=== PATIENT | male | born 1995 | race Two or more races ===

== ENCOUNTER 2018-06-21 17:39 | Emergency (ER) | payer MEDICAID ==
[~2018-06-21] VITALS: Ht 175.3 cm; Wt 79.4 kg
[2018-06-21 18:51] LABS: Alcohol, Urine < 3.0 mg/dL (0-5); Amphetamine Screen, Urine NEGATIVE (NEGATIVE); Barbiturate Scree,Urine NEGATIVE (NEGATIVE); Benzodiazephine Screen, Urine NEGATIVE (NEGATIVE); Cannabinoid Screen, Urine NEGATIVE (NEGATIVE); Cocaine Screen, Urine NEGATIVE (NEGATIVE); Opiate Scree,Urine NEGATIVE (NEGATIVE); Phencyclidine Screen, Urine NEGATIVE (NEGATIVE)
[2018-06-21 18:56] LABS: Urine Bacteria NONE SEEN /hpf (None Seen); Urine Blood Negative /uL (Negative); Urine Mucus FEW (None Seen); Urine Specific Gravity 1.029 (1.001-1.035); Urine WBC 1 /hpf (0 - 3)
[2018-06-21 20:21] LABS: Basophils # (auto) 0 uL; Basophils % (auto) 0.2 % (0.0-2.0); Eosinophils # (auto) 0.1 uL; Hematocrit 48.2 % (41.0-53.0); Hemoglobin 16.7 g/dL (13.5-17.5); Lymphocytes % (auto) 23.8 % (10.0-50.0); Mean Corpuscular Hemoglobin 31.8 pg (28.0-32.0); Mean Corpuscular Hgb Conc. 34.5 g/dL (32.0-36.0); Mean Corpuscular Volume 92.1 fL (80.0-100.0); Monocytes # (auto) 0.7 uL; Monocytes % (auto) 9.1 % (0.0-12.0); Neutrophils # (auto) 5.4 uL; Neutrophils % (auto) 65.9 % (37.0-80.0); Platelet Count (auto) 217 10^3/uL (140-450); Red Blood Cells 5.23 10^6/uL (4.5-5.90); Red Cell Distribution Width 12.9 % (11.8-14.3); White Blood Cell 8.2 10^3/uL (4.4-10.8)
[2018-06-21 20:41] LABS: Alanine Aminotransferase 28 U/L (16-61); Albumin 4.5 g/dL (3.4-5.0); Anion Gap 7 (5-15); Aspartate Aminotransferase 16 U/L (15-37); BUN/Creatinine Ratio 15.1; Blood Urea Nitrogen 14 mg/dL (7-18); Calcium 8.6 mg/dL (8.5-10.1); Carbon Dioxide 25 mmol/L (21-32); Chloride 108 mmol/L (98-107); GFR African American 132 mL/min; GFR Non-African American 109 mL/min; Glucose 113 mg/dL (74-106); Magnesium 2.4 mg/dL (1.6-2.6); Potassium 3.6 mmol/L (3.5-5.1); Sodium 140 mmol/L (136-145)
[2018-06-21 20:46] LABS: Alkaline Phosphatase 84 U/L (45-117); Bilirubin, Total 0.8 mg/dL (0.2-1.0); Total Protein 7.4 g/dL (6.4-8.2)
[2018-06-22 06:34] VITALS: BP 143/89
== END 2018-06-22 06:49 | disposition home or self-care (01) ==
LOC: ER 18:00
DX: R07.9 Chest pain, unspecified (principal); R06.02 Shortness of breath
CPT/HCPCS: 36415; 71046; 80053; 80307; 81001; 83735; 84484; 85025; 85379; 93005

== ENCOUNTER 2019-05-29 20:51 | Inpatient (IN) | payer MEDICAID ==
[~2019-05-29] VITALS: Ht 177.8 cm; Wt 74.8 kg
[2019-05-29 22:01] LABS: Basophils # (auto) 0 uL; Basophils % (auto) 0.4 % (0.0-2.0); Eosinophils # (auto) 0 uL; Eosinophils % (auto) 0.5 % (0.0-7.0); Hematocrit 46.6 % (41.0-53.0); Hemoglobin 16.2 g/dL (13.5-17.5); Lymphocytes # (auto) 1.8 uL; Lymphocytes % (auto) 18.2 % (10.0-50.0); Mean Corpuscular Hgb Conc. 34.7 g/dL (32.0-36.0); Mean Corpuscular Volume 92.2 fL (80.0-100.0); Monocytes # (auto) 0.5 uL; Monocytes % (auto) 4.6 % (0.0-12.0); Neutrophils # (auto) 7.5 uL; Neutrophils % (auto) 76.3 % (37.0-80.0); Nucleated Red Blood Cells % 0.1 %; Platelet Count (auto) 232 10^3/uL (140-450); Red Blood Cells 5.05 10^6/uL (4.5-5.90); Red Cell Distribution Width 13.4 % (11.8-14.3); White Blood Cell 9.9 10^3/uL (4.4-10.8)
[2019-05-29 22:20] LABS: Alanine Aminotransferase 22 U/L (16-61); Albumin 4.6 g/dL (3.4-5.0); Anion Gap 8 (5-15); Aspartate Aminotransferase 13 U/L (15-37); Blood Urea Nitrogen 14 mg/dL (7-18); Calcium 8.6 mg/dL (8.5-10.1); Carbon Dioxide 25 mmol/L (21-32); Chloride 107 mmol/L (98-107); Glucose 79 mg/dL (74-106); Potassium 3.6 mmol/L (3.5-5.1); Sodium 140 mmol/L (136-145)
[2019-05-29 22:20] LABS: Urine Bacteria NONE SEEN /hpf (None Seen); Urine Blood Negative /uL (Negative); Urine Mucus FEW (None Seen); Urine WBC 1 /hpf (0 - 3)
[2019-05-29 22:24] LABS: Alkaline Phosphatase 83 U/L (45-117); BUN/Creatinine Ratio 12.8; GFR African American 110 mL/min; GFR Non-African American 91 mL/min; Total Protein 7.8 g/dL (6.4-8.2)
[2019-05-29 22:25] LABS: Alcohol, Urine < 3.0 mg/dL (0-5); Amphetamine Screen, Urine NEGATIVE (NEGATIVE); Barbiturate Scree,Urine NEGATIVE (NEGATIVE); Benzodiazephine Screen, Urine NEGATIVE (NEGATIVE); Cannabinoid Screen, Urine NEGATIVE (NEGATIVE); Cocaine Screen, Urine NEGATIVE (NEGATIVE); Opiate Scree,Urine NEGATIVE (NEGATIVE); Phencyclidine Screen, Urine NEGATIVE (NEGATIVE)
[2019-05-30] VITALS (7 sets, daily range): BP systolic 116–137; BP diastolic 61–83
[2019-05-30] MEDS ORDERED: ONDANSETRON ODT 4 MG TAB PO ONE (00:15)
[2019-05-30] MEDS ORDERED: ASPirin-EC 325mg tab PO ONE (00:15)
[2019-05-30] MEDS ORDERED: MORPHINE SULFATE 4 MG/ML SYR/VIAL IV ONE (00:15)
[2019-05-30] MEDS ORDERED: NITROGLYCERIN 0.4 MG SL TAB SL PRN ×2 (00:45)
[2019-05-30] MEDS ORDERED: MORPHINE SULFATE 4 MG/ML SYR/VIAL IV PRN (00:45)
[2019-05-30] MEDS ORDERED: ZOLPIDEM TARTRATE 5 MG TAB PO PRN (00:45)
[2019-05-30] MEDS ORDERED: ACETAMINOPHEN 325 MG TAB PO PRN (00:45)
[2019-05-30] MEDS ORDERED: ONDANSETRON HCL 4 MG/2 ML VIAL IV PRN (00:45)
[2019-05-30] MEDS ORDERED: MORPHINE SULF INJ 2 MG/ML SYRINGE 1ML IV PRN (00:45)
[2019-05-30] MEDS ORDERED: KETOROLAC TROMETH 15 mg/ml 1ML VL IV PRN (00:45)
--- NOTE | 2019-05-30 01:45 | NUR ---
Telemetry admit from ER B[facility] HESTER admitted to Telemetry unit, oriented to EMMA MOORE RN primary RN, unit, room, bed, and unit policies regarding patient care and visiting hours. Mother, Cynthia, at bedside. Patient now on continuous telemetry monitoring, tele box # 1 and telemetry reading on arrival to unit is sinus rhythm at 70 beats per minute with bundle branch block and ST elevation. Patient reporting continuous 6/10 "tight" chest pain, radiating to left arm with nausea. Patient noted to have been medicated prior to arrival to unit (see emar) and MD's noted to be aware (see notes). All vital signs WNL. Patient weighed by bedscale and encouraged to call if they need something. All questions and concerns addressed, patient verbalized understanding. Bed in lowest locked position, side rails up x2, call light within reach. Will round every hour and as needed and continue to monitor.
[2019-05-30 06:37] LABS: Basophils # (auto) 0 uL; Basophils % (auto) 0.4 % (0.0-2.0); Eosinophils # (auto) 0.1 uL; Eosinophils % (auto) 0.9 % (0.0-7.0); Hematocrit 42.6 % (41.0-53.0); Hemoglobin 14.9 g/dL (13.5-17.5); Lymphocytes # (auto) 3.1 uL; Mean Corpuscular Hemoglobin 32.3 pg (28.0-32.0); Mean Corpuscular Volume 92.1 fL (80.0-100.0); Monocytes # (auto) 0.5 uL; Monocytes % (auto) 7.7 % (0.0-12.0); Neutrophils # (auto) 3.2 uL; Nucleated Red Blood Cells % 0.1 %; Platelet Count (auto) 186 10^3/uL (140-450); Red Blood Cells 4.62 10^6/uL (4.5-5.90); Red Cell Distribution Width 13.4 % (11.8-14.3); White Blood Cell 6.9 10^3/uL (4.4-10.8)
--- NOTE | 2019-05-30 06:47 | NUR ---
Closing Note Patient lying in bed, awake and alert. No s/s of distress. Bed in lowest locked position, side rails up x2, call light within reach. Will endorse care to dayshift RN.
[2019-05-30 06:59] LABS: Potassium 3.5 mmol/L (3.5-5.1)
[2019-05-30 07:05] LABS: BUN/Creatinine Ratio 12.2; Calcium 8.7 mg/dL (8.5-10.1)
--- NOTE | 2019-05-30 08:00 | NUR ---
Opening Note Assumed patient care from NOC RN. Patient currently sleeping. Respirations are even and unlabored, no signs of distress at this time. Safety precautions in place: bed is locked and in lowest position with side rails up x2. Will continue to monitor.
[2019-05-30] MEDS ORDERED: LISINOPRIL 5 MG TAB PO SCH (10:00)
[2019-05-30] MEDS ORDERED: ASPirin 81 mg TAB PO SCH (10:00)
[2019-05-30] MEDS ORDERED: CLOPIDOGREL BISULFATE 75 MG TAB PO SCH (10:00)
--- NOTE | 2019-05-30 10:30 | NUR ---
Family at bedside Patient up in bed, AOx4. Denies pain at this time. Respirations are even and unlabored. IV flushes easily with blood return noted, denies pain at site. Safety precautions in place and family is at bedside; will continue to monitor.
[2019-05-30] MEDS: METOPROLOL TARTRATE 25 MG TAB PO SCH ×2 (10:45→21:45)
--- NOTE | 2019-05-30 11:22 | NUR ---
New Orders New orders received from Dr. Dockery to page Dr. Ventura Avalos to clear for discharge on 05/31.
--- NOTE | 2019-05-30 12:02 | NUR ---
MD Per Dr. Gibson, echo results cleared. Orders to page Dr. Sis Avalos for discharge clearance in AM.
--- NOTE | 2019-05-30 13:25 | NUR ---
Call to Dr. Ventura Avalos Called Dr. Ventura Avalos regarding clearing patient for discharge in AM per Dr. Dockery request. MD aware of echo results, patient has been cleared for discharge by cardio.
--- NOTE | 2019-05-30 15:52 | NUR ---
Patient Rounds Patient sitting up in bed with family at bedside. Patient stated he is having trouble passing bowel movement; offered prune juice with dinner, patient agreed. Dietary called, juice to be delivered with dinner tray. Respirations are even and unlabored, no signs of distress at this time. Safety precautions in place. Will continue to monitor.
--- NOTE | 2019-05-30 19:30 | NUR ---
Opening Shift Note Assumed care of patient, awake and alert. Family at bedside. No S/S of distress/SOB or pain. Bed in lowest locked position, side rails up x2, call light within reach. Instructed on POC and to call for assist PRN, will continue to monitor for changes Q1hr and PRN.
[2019-05-30] MEDS ORDERED: ATORVASTATIN 20 MG TAB PO SCH (22:00)
[2019-05-31 05:00] VITALS: BP 111/78
--- NOTE | 2019-05-31 06:55 | NUR ---
Closing Note Patient lying in bed, eyes closed, respirations even and unlabored, appears asleep. No s/s of distress. Bed in lowest locked position, side rails up x2, call light within reach. Will endorse care to dayshift RN.
--- NOTE | 2019-05-31 08:00 | NUR ---
Opening Note Patient is sitting up in bed. Respirations even and unlabored on room air. Safety precautions in place, brakes locked and bed in lowest position. Will continue to monitor.
[2019-05-31 09:00] VITALS: BP 127/70
[2019-05-31 10:01] VITALS: BP 115/58
--- NOTE | 2019-05-31 10:23 | NUR ---
Patient Discharged Discharge instructions given as ordered. Encourage to follow up with PMD as instructed. All questions and concerns addressed. Patient verbalized understanding. Medication reconciliation form completed and copy given to patient. IV removed with catheter intact, pressure dressing applied. Telemetry unit returned to ICU. Patient ambulated to vehicle, accompanied family members. No distress noted at time of departure.
== END 2019-05-31 10:23 | disposition home or self-care (01) | DRG 203 ==
LOC: ER 20:51 → TELE 20:52 → TELE-EAST 05-30 01:45
PROVIDERS: ADMIT Hospitalist; ATTEND Internal Medicine
DX: M94.0 Chondrocostal junction syndrome [Tietze] (principal); R00.2 Palpitations; Z80.8 Family history of malignant neoplasm of other organs or systems; Z80.3 Family history of malignant neoplasm of breast
CPT/HCPCS: 36415; 71046; 80048; 80053; 80061; 80307; 81001; 84443; 84484; 85025; 93005; 93306; 96374; 96375; G0378; J2405

== ENCOUNTER 2024-06-19 18:15 | Emergency (ER) | payer MEDICAID ==
[~2024-06-19] VITALS: Ht 180.3 cm; Wt 75.0 kg
[2024-06-19 19:52] LABS: Basophils # (auto) 0 10 ^3/uL (0-0.2); Basophils % (auto) 0.2 % (0.0-2.0); Eosinophils # (auto) 0 10 ^3/uL (0-0.8); Hematocrit 47.9 % (41.0-53.0); Hemoglobin 16.5 g/dL (13.5-17.5); Lymphocytes # (auto) 0.3 10 ^3/uL (0.4-5.4); Mean Corpuscular Hemoglobin 31.5 pg (28.0-32.0); Mean Corpuscular Hgb Conc. 34.4 g/dL (32.0-36.0); Mean Corpuscular Volume 91.6 fL (80.0-100.0); Monocytes # (auto) 0.6 10 ^3/uL (0-1.3); Monocytes % (auto) 5.5 % (0.0-12.0); Neutrophils # (auto) 10.1 10 ^3/uL (1.6-8.6); Neutrophils % (auto) 91.3 % (37.0-80.0); Nucleated Red Blood Cells % 0.2 %; Platelet Count (auto) 188 10^3/uL (140-450); Red Blood Cells 5.23 10^6/uL (4.5-5.90); Red Cell Distribution Width 13.2 % (11.8-14.3)
--- NOTE | 2024-06-19 19:52 | ED.PDOC ---
GI ASSESSMENT HPI Comments 29 year old male came to Er due to nausea and vomiting. Patient has been having episodes of nausea, vomiting and diarrhea since this morning, associated with headaches, lower back pains and abdominal pain. Patient had his wisdom tooth extracted 5 days ago and is currently on antibiotics. Chief Complaint: Nausea/Vomiting Time Seen by MD: 19:51 Primary Care Provider: [facility] Reviewed Notes: Nurses Notes Allergies: Coded Allergies: NO KNOWN ALLERGIES (Unverified , 11/24/10) Home Meds Active Scripts Ondansetron Odt 4MG Tab (ZOFRAN PO) 4 Mg Tb, 4 MG PO TIDPRN PRN for 3 Days, #9 TAB ODT TAB-DISSOLVE IN MOUTH, THEN SWALLOW Prov:ENRIQUE SCHMIDT MD 06/19/24 Information Source: Patient Mode of Arrival: Ambulatory Timing: Hours Duration: Since onset Quality: Aching Vomitus: Watery Stool: Loose, Watery Severity: Moderate Recent: Possible spoiled food, Antibiotics Recent Hx of: None Pain Location: Epigastric Modifying Factors: Nothing Associated sign and symptoms: Nausea, Vomiting, Diarrhea, Abdominal Pain Review of Systems REVIEW OF SYSTEMS: No fever, no chills, or fatigue HEENT: No sore throat, no earache, no congestion, no neck pain. Cardiac: No chest pain. No palpitations. Lungs: No shortness of breath, no cough. GI: (+) nausea, (+) vomiting, (+) diarrhea, no constipation, (+) abdominal pain : No dysuria, frequency, or urgency. No hematuria. Musculoskeletal: No joint pain , no joint swelling, no extremity edema. Skin: No rash, no itching. Neuro: No headache, no dizziness, no weakness Vital Signs Vital Signs Date Time Temp Pulse Resp B/P (MAP) Pulse Ox O2 Delivery O2 Flow Rate FiO2 06/19/24 20:06 98.9 107 18 114/63 (80) 97 98.9 Physical Exam General: Awake, alert and oriented. No acute distress. Skin: Skin in warm, dry and intact. Appropriate color for ethnicity. Nailbeds pink with no cyanosis. HEENT: The head is normocephalic and atraumatic. Conjunctivae are clear without exudates or hemorrhage. Sclera is non-icteric. EOM are intact. No signs of nys tagmus. Eyelids are normal in appearance without swelling or lesions. Oral mucosa is pink and moist Neck: The neck is supple with normal range of motion. No JVD. Cardiac: Heart rate and rhythm are normal. No murmurs, gallops, or rubs are auscultated. Respiratory: No signs of respiratory distress. Lung sounds are clear in all lobes bilaterally without rales, ronchi, or wheezes. Abdominal: Abdomen is soft, right lower quadrant tenderness without distention. Bowel sounds are present and normoactive in all four quadrants. Extremities: Upper and lower extremities are atraumatic in appearance without deformity or edema. Neurological: The patient is awake, alert and oriented to person, place, and time with normal speech. Speech is clear. There is no facial asymmetry. Psychiatric: Appropriate mood and affect. Good judgement and insight. No visual or auditory hallucinations. Past Medical History PAST MEDICAL HISTORY: Denies Surgical History: Denies all surgeries Family History Family History: No family hx of Heart aramis Social History Smoker: Non-Smoker Alcohol: Denies ETOH Use Drugs: Denies Drug Use Lives In: Home Was a procedure done? Was a procedure done?: No GI differential Dx Differential Diagnosis: AAA, Appendicitis, Bowel Obstruction, Cholangitis, Ch olecystitis, Diverticular disease, Gastritis/PUD, Gastroenteritis, Ischemic Bowel, Pancreatitis, UTI, Urolithiasis, Dehydration, Food Poisoning, Other X-Ray, Labs, Meds, VS Vital Signs Date Time Temp Pulse Resp B/P (MAP) Pulse Ox O2 Delivery O2 Flow Rate FiO2 06/19/24 20:06 98.9 107 18 114/63 (80) 97 98.9 06/19/24 18:33 99.1 107 17 125/66 (85) 98 99.1 Lab Test 06/19/24 20:35 06/19/24 20:34 06/19/24 19:38 Range/Units Urine Color Yellow Yellow Urine Clarity Clear Clear Urine pH 5.5 5.0-9.0 Urine Specific [place] 1.031 1.001-1.035 Urine Protein 1+ H Negative Urine Ketones 3+ H Negative Urine Blood Negative Negative /uL Urine Nitrite Negative Negative Urine Bilirubin Negative Negative Urine Urobilinogen Normal Negative mg/dL Urine Leukocyte Esterase Negative Negative /uL Urine RBC <1 0 - 3 /hpf Urine Microscopic WBC 3 0-3 /HPF Urine Squamous Epithelial Cells None seen <5 /hpf Urine Bacteria None seen None Seen /hpf Urine Mucus Few None Seen Urine Glucose Normal Normal mg/dL Influenza Type A Antigen Negative Negative Influenza Type B Antigen Negative Negative SARS-CoV-2 Antigen (Rapid) Negative NEGATIVE White Blood Count 11.0 H 4.4-10.8 10^3/uL Red Blood Count 5.23 4.5-5.90 10^6/uL Hemoglobin 16.5 13.5-17.5 g/dL Hematocrit 47.9 41.0-53.0 % Mean Corpuscular Volume 91.6 80.0-100.0 fL Mean Corpuscular Hemoglobin 31.5 28.0-32.0 pg Mean Corpuscular Hemoglobin Concent 34.4 32.0-36.0 g/dL Red Cell Distribution Width 13.2 11.8-14.3 % Platelet Count 188 140-450 10^3/uL Mean Platelet Volume 7.4 6.9-10.8 fL Neutrophils (%) (Auto) 91.3 H 37.0-80.0 % Lymphocytes (%) (Auto) 3.0 L 10.0-50.0 % Monocytes (%) (Auto) 5.5 0.0-12.0 % Eosinophils (%) (Auto) 0.0 0.0-7.0 % Basophils (%) (Auto) 0.2 0.0-2.0 % Neutrophils # (Auto) 10.1 H 1.6-8.6 10 ^3/uL Lymphocytes # (Auto) 0.3 L 0.4-5.4 10 ^3/uL Monocytes # (Auto) 0.6 0-1.3 10 ^3/uL Eosinophils # (Auto) 0 0-0.8 10 ^3/uL Basophils # (Auto) 0 0-0.2 10 ^3/uL Nucleated Red Blood Cells 0.2 % Sodium Level 141 136-145 mmol/L Potassium Level 4.4 3.5-5.1 mmol/L Chloride Level 107 98-107 mmol/L Carbon Dioxide Level 27 20-31 mmol/L Anion Gap 7 5-15 Blood Urea Nitrogen 18 9-23 mg/dL Creatinine 1.11 0.700-1.30 mg/dL Glomerular Filtration Rate Calc 93 >90 mL/min BUN/Creatinine Ratio 16.2 10.0-20.0 Serum Glucose 104 74-106 mg/dL Lactic Acid Level 1.0 0.4-2.0 mmol/L Calcium Level 9.6 8.7-10.4 mg/dL Total Bilirubin 1.9 H 0.2-1.0 mg/dL Aspartate Amino Transferase (AST) 12 L 13-40 U/L Alanine Aminotransferase (ALT) 23 7-40 U/L Alkaline Phosphatase 61 46-116 U/L Total Protein 6.9 5.7-8.2 g/dL Albumin 4.9 H 3.2-4.8 g/dL Lipase 30 12-53 U/L Current Medications Medications (Trade) Dose Ordered Sig/Amauri Route Start Time Stop Time Status Last Admin Ketorolac Tromethamine (Toradol Injection) 30 mg ONCE ONCE IV 06/19/24 19:15 06/19/24 19:16 DC 06/19/24 20:22 Ondansetron HCl (Zofran) 4 mg ONCE ONCE IV 06/19/24 19:15 06/19/24 19:16 DC 06/19/24 20:22 Exam: CT CT AB PEL WITH IV CON ONLY History: RLQ pain COMPARISON: None Technique: Multidetector spiral CT of the abdomen and pelvis was performed from lung bases to pubic symphysis. Intravenous contrast was administered during this examination. Portal venous imaging was obtained. Axial, coronal and sagittal multiplanar reformats were performed by the technologist on a separate workstation. Radiation Dose : 1. Abdomen/Pelvis: CTDIvol 8.9 mGy, DLP 551 mGy*cm. CONTRAST: Type of contrast: Omni 300 Contrast injected: 100 ml Findings: Lung Bases: No acute or significant lung base finding. Normal heart size. No pleural or pericardial effusion. Liver: The liver is normal in size. No focal lesions. Normal hepatic vascular enhancement. Gallbladder and Biliary Tree: Unremarkable Spleen: Unremarkable Pancreas: The pancreas is normal in appearance without focal lesions or abnormal enhancement. Adrenal Glands: Unremarkable Kidneys: No hydronephrosis. Bladder: Unremarkable Bowel: The stomach is grossly normal in appearance. Concentric wall thickening of multiple loops of small bowel in the left hemiabdomen which may reflect enteritis. Normal caliber appendix. Ascites: Absent Lymphadenopathy: No mesenteric, retroperitoneal or periportal lymphadenopathy. Abdominal Wall and Mesentery: Unremarkable. Vasculature: The visualized abdominal aorta is normal in size and caliber. Abdominal and pelvic vessels demonstrate normal enhancement. Pelvic Organs: Unremarkable Musculoskeletal: No aggressive focal bony lesions, acute fractures or dislocation. IMPRESSION: 1. Concentric wall thickening of multiple loops of small bowel in the left hemiabdomen which may reflect enteritis. 2. Normal caliber appendix. Time of 1ST Reevaluation: 19:49 Reevaluation 1ST: Unchanged Patient Education/Counseling: Treatment, Need For Follow Up Family Education/Counseling: Treatment, Need For Follow Up Departure 1 Departure Time of Disposition: 21:49 Impression: Primary Impression: Nausea vomiting and diarrhea Additional Impression: Abdominal pain Disposition: HOME / SELF CARE / HOMELESS Condition: Stable Additional Instructions: ED DISCHARGE INSTRUCTIONS Instructions: Please read all instructions provided in this packet carefully. Although you have been discharged from the Emergency Department, this does not mean that you have a "clean bill of health". No definitive diagnosis for your symptoms has been made today. It is possible that you are in the process of developing a serious illness. This is why you must return to the ED without fail if any new or worsening symptoms (especially if your symptoms include chest p ain, trouble breathing, abdominal pain, fever, headache, confusion, trouble seeing, or trouble walking) It is also very important that you see a primary care doctor within the next 3-5 days to follow up. If you are unable to get an appointment, return to the ED for re-evaluation. Abdominal Pain: Care Instructions Overview Abdominal pain has many possible causes. Some aren't serious and get better on their own in a few days. Others need more testing and treatment. If your pain continues or gets worse, you need to be rechecked and may need more tests to find out what is wrong. You may need surgery to correct the problem. Don't ignore new symptoms, such as fever, nausea and vomiting, urination problems, pain that gets worse, and dizziness. These may be signs of a more serious problem. If you are not getting better, you may need more tests or treatment. The doctor has checked you carefully, but problems can develop later. If you notice any problems or new symptoms, get medical treatment right away. Follow-up care is a harris part of your treatment and safety. Be sure to make and go to all appointments, and call your doctor if you are having problems. It's also a good idea to know your test results and keep a list of the medicines you take. How can you care for yourself at home? Rest until you feel better. To prevent dehydration, drink plenty of fluids. Choose water and other clear liquids until you feel better. If you have kidney, heart, or liver disease and have to limit fluids, talk with your doctor before you increase the amount of fluids you drink. When you feel like eating, start with small amounts. Do not have alcohol, caffeine, or spicy, hot, or high-fat foods for a day or two. Avoid anti-inflammatory medicines such as aspirin, ibuprofen (Advil, Motrin), and naproxen (Aleve). These can cause stomach upset. Talk to your doctor if you take daily aspirin for another health problem. When should you call for help? Call 911 anytime you think you may need emergency care. For example, call if: You passed out (lost consciousness). You pass maroon or very bloody stools. You vomit blood or what looks like coffee grounds. You have severe belly pain. Call your doctor now or seek immediate medical care if: Your pain gets worse, especially if it becomes focused in one area of your belly. You have a new or higher fever. Your stools are black and look like tar, or they have streaks of blood. You have unexpected vaginal bleeding. You have symptoms of a urinary tract infection. These may include: Pain when you urinate. Urinating more often than usual. Blood in your urine. You are dizzy or lightheaded, or you feel like you may faint. Watch closely for changes in your health, and be sure to contact your doctor if: You are not getting better as expected. Credits for Abdominal Pain: Care Instructions Current as of: January 23, 2023 Author: [employer] Staff Clinical Review Board All [place] education is reviewed by a team that includes physicians, nurses, advanced practitioners, registered dieticians, and other healthcare professionals. e-Prescriptions Ondansetron Odt 4MG Tab (ZOFRAN PO) 4 Mg Tb 4 MG PO TIDPRN PRN for 3 Days, #9 TAB ODT TAB-DISSOLVE IN MOUTH, THEN SWALLOW Prov: ENRIQUE SCHMIDT MD 06/19/24 Comments 29-year-old male presented with abdominal pain. No peritoneal signs on abdominal exam. No evidence of acute abdomen at this time. patient is well appearing. Labs show only mild leukocytosis and no elevation of LFTs. Imaging shows no acute process Patient is afebrile. Patient is not hypotensive. Low suspicion for acute hepatobiliary disease (including acute cholecystitis, acute pancreatitis, PUD (including perforation), acute infectious process (pneumonia, hepatitis, pyelonephritis), acute appendicitis, vascular catastrophe, bowel obstructions, viscous perforation. Presentation not consistent with other acute, emergent causes of abdominal pain at this time. Patient felt stable for discharge home. Patient well-appearing, nontoxic. Advised prompt follow-up with PCP, return to the ED with any new, worsening or concerning symptoms. Extensive evaluation was performed in attempt to identify or rule out: (See differential diagnosis section) The following tests were ordered, and results were reviewed by me and discussed with the patient: (See diagnostic results section) The following test were independently interpreted by me: N/A I reviewed and agreed with the following test results read by other providers: N/A I reviewed the following notes from the pt's past medical encounters: (None available at this time) Additional information was gathered from interviewing the following independent historians: Patient's mother at bedside Discussion of management or test interpretation with external physician/other qualified health manager medicare: N/A Drug therapy requiring intensive monitoring for toxicity: IV contrast Parenteral controlled substances: N/A Decision regarding elective major surgery with identified patient or procedure risk factors: N/A Decision regarding emergency major surgery: N/A Decision not to resuscitate or to de-escalate care because of poor prognosis: N/A Diagnosis or treatment significantly limited by social determinants of health: N/A Decision regarding hospitalization or escalation of hospital level of care: Risks and benefits of admission for further treatment of patient's condition was considered however due to patient's stable condition patient will be discharged to follow up closely or return to care for worsening of condition or inability to follow up. Critical Care Note Critical Care Time?: No Stability Stability form required: No Heart Score Heart Score: Heart Score Response (Comments) Value History N/A 0 EKG N/A 0 Age N/A 0 Risk Factors N/A 0 Troponin N/A 0 Total 0 I personally scribed for MINTAH,CHAILLE A MD ([email or web address]) on 06/19/24 at 19:52. Electronically submitted by Kali Dyer ([facility]). I personally scribed for ENRIQUE SCHMIDT MD ([email or web address]) on 06/19/24 at 20:20. Electronically submitted by Kali Dyer ([email or web address]). I personally scribed for ENRIQUE SCHMIDT MD ([email or web address]) on 06/19/24 at 21:46. Electronically submitted by Kali Dyer ([email or web address]). ENRIQUE SCHMIDT MD Jun 19, 2024 19:52
[2024-06-19 20:04] LABS: Alanine Aminotransferase 23 U/L (7-40); Alkaline Phosphatase 61 U/L (46-116); Anion Gap 7 (5-15); BUN/Creatinine Ratio 16.2 (10.0-20.0); Blood Urea Nitrogen 18 mg/dL (9-23); Calcium 9.6 mg/dL (8.7-10.4); Carbon Dioxide 27 mmol/L (20-31); Chloride 107 mmol/L (98-107); Glucose 104 mg/dL (74-106); Lipase 30 U/L (12-53); Potassium 4.4 mmol/L (3.5-5.1); Sodium 141 mmol/L (136-145); Total Protein 6.9 g/dL (5.7-8.2)
[2024-06-19 20:06] VITALS: BP 114/63; PULSE 107; RESP 18; TEMP 98.9; O2SAT 97
[2024-06-19 20:12] LABS: Albumin 4.9 g/dL (3.2-4.8); Aspartate Aminotransferase 12 U/L (13-40); Bilirubin, Total 1.9 mg/dL (0.2-1.0)
[2024-06-19] MEDS: ONDANSETRON HCL 4 MG/2 ML VIAL IV ONE (20:22)
[2024-06-19] MEDS: KETOROLAC TROMETH 30 MG/ML 1ML VIAL IV ONE (20:22)
[2024-06-19 20:53] LABS: Urine Bacteria None Seen /hpf (None Seen)
[2024-06-19 21:01] LABS: Urine Blood Negative /uL (Negative); Urine Clarity Clear (Clear); Urine Color Yellow (Yellow); Urine Mucus FEW (None Seen); Urine Protein, UAD 1+ (Negative); Urine Specific Gravity 1.031 (1.001-1.035); Urine Squamous Epithelial Cell None Seen /hpf (<5); Urine Urobilinogen Normal (Negative); Urine WBC 3 /HPF (0-3); Urine pH 5.5 (5.0-9.0)
[2024-06-19] MEDS: IOHEXOL 300 MG/ML 100ML BOTTLE IJ ONE (21:07)
--- NOTE | 2024-06-19 21:38 | DVH ---
Exam: CT CT AB PEL WITH IV CON ONLY History: RLQ pain COMPARISON: None Technique: Multidetector spiral CT of the abdomen and pelvis was performed from lung bases to pubic s ymphysis. Intravenous contrast was administered during this examination. Portal venous imaging was obtained. Axial, coronal and sagittal multiplanar reformats were performed by the technologist on a separate workstation. Radiation Dose : 1. Abdomen/Pelvis: CTDIvol 8.9 mGy, DLP 551 mGy*cm. CONTRAST: Type of contrast: Omni 300 Contrast injected: 100 ml Findings: Lung Bases: No acute or significant lung base finding. Normal heart size. No pleural or pericardial effusion. Liver: The liver is normal in size. No focal lesions. Normal hepatic vascular enhancement. Gallbladder and Biliary Tree: Unremarkable Spleen: Unremarkable Pancreas: The pancreas is normal in appearance without focal lesions or abnormal enhancement. Adrenal Glands: Unremarkable Kidneys: No hydronephrosis. Bladder: Unremarkable Bowel: The stomach is grossly normal in appearance. Concentric wall thickening of multiple loops of s mall bowel in the left hemiabdomen which may reflect enteritis. Normal caliber appendix. Ascites: Absent Lymphadenopathy: No mesenteric, retroperitoneal or periportal lymphadenopathy. Abdominal Wall and Mesentery: Unremarkable. Vasculature: The visualized abdominal aorta is normal in size and caliber. Abdominal and pelvic vess els demonstrate normal enhancement. Pelvic Organs: Unremarkable Musculoskeletal: No aggressive focal bony lesions, acute fractures or dislocation. IMPRESSION: 1. Concentric wall thickening of multiple loops of small bowel in the left hemiabdomen which may refl ect enteritis. 2. Normal caliber appendix. Radiation optimization: All CT scans at this facility use at least one of these dose optimization bobby hniques: automated exposure control mA and/or kV adjustment per patient size (includes targeted exam s where dose is matched to clinical indication) or iterative reconstruction.
[2024-06-19] MEDS ORDERED: ZOFR4T PO (21:50)
[2024-06-19 22:04] LABS: COVID19 ANTIGEN SOFIA FIA NEGATIVE (NEGATIVE); Rapid Influenza A Negative (Negative); Rapid Influenza B Negative (Negative)
== END 2024-06-19 22:03 | disposition home or self-care (01) ==
LOC: ER 18:21
DX: R11.2 Nausea with vomiting, unspecified (principal); R10.31 Right lower quadrant pain; M54.50 Low back pain, unspecified; R51.9 Headache, unspecified; Z79.899 Other long term (current) drug therapy; Z20.822 Contact with and (suspected) exposure to COVID-19
CPT/HCPCS: 36415; 74177; 80053; 81001; 83605; 83690; 85025; 87426; 87804; 96374; 96375; 99285; J1885; J2405; Q9967